=== PATIENT | female | born 2000 | race Caucasian/White ===

== ENCOUNTER 2023-07-22 11:55 | Outpatient (RCR) | payer MEDICAID, SELFPAY ==
[2023-07-22 13:06] VITALS: BP 132/78; PULSE 86
== END 2023-09-26 08:17 | disposition home or self-care (01) ==
LOC: ANHOBOP 11:55
PROVIDERS: Visit Provider Obstetrics & Gynecology Gynecology
DX: O36.8130 Decreased fetal movements, third trimester, not applicable or unspecified (principal); Z3A.37 37 weeks gestation of pregnancy
CPT/HCPCS: 59025